=== PATIENT | male | born 1980 | race Caucasian/White ===

== ENCOUNTER 2024-09-27 12:16 | Emergency (ER) | payer SELFPAY ==
[2024-09-27 12:38] VITALS: BP 170/96; PULSE 57; RESP 14; TEMP 36.4; O2SAT 99; BMI 21.4
--- NOTE | 2024-09-27 12:39 | ED.OVERDOSE ---
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 Admits to using 4 bags of heroin today. He overdose and was found given 1 IN narcan. He has no SI/HI. He refuses to stay he is alert and oriented aware that he may overdose again but refuses to stay. He does not want SUDE eval or intervention. 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) Context: Accidental Overdose: wanted to get high Associated symptoms: nausea/vomiting Treatments Prior to Arrival: narcan Related Data Allergies Allergy/AdvReac Type Severity Reaction Status Date / Time No Known Allergies Allergy Verified 09/27/24 12:41 Review of Systems Review of Systems: Constitutional : No Fever, No Chills, No Fatigue ENT/Mouth : No sore throat, No Rhinorrhea Eyes: No Eye Pain, No Swelling, No Redness Cardiovascular : No Chest Pain, No SOB, No Dyspnea on Exertion Respiratory : No Cough, No Sputum Gastrointestinal : No Nausea, No Vomiting, No Diarrhea, No abdominal Pain Genitourinary : No Dysuria, No Urinary Frequency, No Hematuria, Musculoskeletal : No joint pain, No Myalgias, No Joint Swelling Skin : No Skin Lesions, No rash Neuro : No Weakness, No Numbness, No Dizziness, no Headache Psych : No Anxiety/Panic, No Depression, no SI/HI All other systems reviewed and are negative [facility] Past Medical History Attestation statement: The following information was validated with the patient. Source: old records reviewed Medical History (Updated 09/27/24 @ 12:41 by Mayra Tolentino DO) Opiate use Social History Social History (Updated 09/27/24 @ 12:41 by Mayra Tolentino DO) Patient Tobacco Use Status: Tobacco use Unknown Physical Exam Vital Signs: Vital Signs: Last Vital Signs Temp 97.5 F 09/27/24 12:38 Pulse 57 09/27/24 12:38 Resp 14 09/27/24 12:38 BP 170/96 H 09/27/24 12:38 Pulse Ox 99 09/27/24 12:38 O2 Del Method Room Air 09/27/24 12:38 BMI result Body Mass Index 21.4 Appearance: Alert. Oriented X3. No acute distress. Eyes: Pupils equal, round and reactive to light. ENT: Pharynx normal. atraumatic Neck: Normal inspection. Neck supple. CVS: Normal heart rate and rhythm. Pulses normal. Respiratory: No respiratory distress. Breath sounds normal. Abdomen: Soft and nontender. Skin: Skin warm and dry. Normal skin color. Normal skin turgor. Extremities: No lower extremity edema. No calf ttp Neuro: Oriented X 3. No motor deficit. No sensory deficit. CN2-12 intact Medical Decision Making Medical Decision Making MDM Narrative: 43 yo male OUD on methadone wanted to get high and overdose he has no trauma no SI/HI. At this time he refuses to stay. He will be given narcan to go and resources. He is alert and oriented he is able to refuse Differential Diagnosis Differential Diagnoses: The differential diagnosis associated with the presentation includes overdose, opiate use disorder Admission/Observation Consideration of admission/observation: Escalation of care including admission/observation considered refuses to stay wants to leave AMA Independent Historian Clinical information obtained from an independent historian. History obtained from or confirmed by: EMS Prescription Management I considered prescription management with: Other Discharge Plan Discharge Clinical Impression: Overdose Qualifiers: Encounter type: initial encounter Injury intent: accidental or unintentional Qualified Code(s): T50.901A - Poisoning by unspecified drugs, medicaments and biological substances, accidental (unintentional), initial encounter Instructions: Against Medical Advice (ED), Adult Overdose (ED) Additional Instructions: Overdose You were seen in our Emergency Department for an overdose today. You received narcan in order to reverse the effects of overdose. Narcan only lasts about 45 min to 1 hour in the system. You may have been given narcan to take home with you today, please keep it near you if you are going to use again, so others can use it if needed.? The number one risk for fatal overdose is using alone? [facility] is a / hotline where you can be on the phone with someone while you use, and they can call for help if they suspect an overdose: [phone] Things to look out for when you leave include severe vomiting or diarrhea, headaches, muscle cramps, fever, coughing, chest pain, or if you feel so short of breath you cannot walk to the bathroom. Please seek care and return any time for worsening symptoms.? You may have been provided with safer injection?items, please take time to take care of YOU and your health. Use new supplies whenever possible to lessen the chances of infections and other illnesses.? If you need more supplies, please go [facility],? [address] [place] [address] OR you can call or text to coordinate delivery of safer supplies. If you decide you want to stop or cut down on how much you?re using, please call the numbers on the list provided to you or you can come to our outpatient Addiction Treatment office [facility] (M-F 9am-5p) [address] [place] [address], [facility] [address] [place], [place]. [phone]
[2024-09-27] MEDS: Naloxone HCl Nasal TAKE HOME 4 MG SPRAY 8 MG NOSTRILALT (13:09)
[2024-09-27 13:10] VITALS: BP 170/96; PULSE 57; RESP 14; TEMP 36.4; O2SAT 99
--- OUTSIDE RECORDS SUMMARY | 2024-09-27 16:00 | XMS_ITS | Clinical Summary ---
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 Role Phone Unavailable Primary Care Provider Unavailabl e Allergies No known active allergies Medications No known medications Active Problems Problem Noted Date Diagnosed Date Acne 06/24/2022 Smoker 06/24/2022 Chronic low back pain 06/24/2022 Left ankle injury 06/24/2022 Hx of substance abuse 06/24/2022 Overview (06/24/2022): RX opioids, was on suboxone for 3 years, clean now Social History Tobacco Use Types Packs/Day Years Used Date Smoking Tobacco: Never Assessed Sex and Gender Information Value Date Recorded Sex Assigned at Male 06/24/2022 9:45 AM EST Legal Sex Male 8:35 PM EDT Gender Identity Male 06/24/2022 9:45 AM EST Sexual Orientation Don't know 06/24/2022 10 :00 AM EST Plan of Treatment Health Maintenance Due Date Last Done Comments Depression Screening 1981 HIV Screening 1981 Lipid Panel 1981 SDOH Screening 1981 Alcohol/Substance Use Screening 1993 Tobacco Screening 1993 Family Planning (PISQ) 1996 Hepatitis C Screening 11/29/1999 Hepatitis B Vaccines (1 of 3 - 19+ 3-dose series) 2000 Dental Oral Exam 03/10/2010 09/06/2009, 01/2005, 07/31/2004, Additional history exists Dental Prophylaxis 03/10/2010 09/06/2009, 0 02/20/2005, 07/31/2004, Additional history exists Dental X-Ray: Bitewings 09/07/2010 09/07/19 10, 07/31/2004, 01/25/2002 Dental X-Ray: Full Mouth 09/07/2012 09/06/2009 DTaP/Tdap/Td Vaccines (2 - Td or Tdap) 12/20/2019 12/19/2009, 04/03/2005 COVID-19 Vaccine (1 - 2023- season) 2024 Influenza Vaccine (#1) 2024 Zoster Vaccines (1 of 2) 11/29/2031 RSV Patients and Patients Aged 60 years or older (1 - 1-dose 75+ series) 2056 HIB Vaccines Aged Out No longer eligi ble based on patient's age to complete this topic HPV Vaccines Aged Out No longer eligi ble based on patient's age to complete this topic Hepatitis A Vaccines Aged Out No long er eligible based on patient's age to complete this topic IPV Vaccines Aged Out No longer eligi ble based on patient's age to complete this topic Meningococcal Vaccine Aged Out No rene juan carlos eligible based on patient's age to complete this topic Pneumococcal Vaccine: Pediatrics (0 to 5 Years) and At-Risk Patients (6 to 49) Years) Aged Out No longer eligible based on patient's age to complete this topic RSV under 20 months Aged Out No longe r eligible based on patient's age to complete this topic Rotavirus Vaccines Aged Out No longer eligible based on patient's age to complete this topic Procedures Procedure Name Priority Date/Time Associated Diagnosis Comments PROPHYLAXIS - ADULT Routine 09/06/2009 1 2:00 AM EDT INTRAORAL - COMPLETE SERIES OF RADIOGRAPHIC IMAGES Routine 09/06/2009 12:00 AM EDT PERIODIC ORAL EVALUATION - ESTABLISHED PATIENT Routine 09/06/2009 12:00 AM EDT from Last 3 Months or Most Recently Relevant to Health Maintenance Insurance [facility] MEDICAID STAND ADULT
== END 2024-09-27 13:10 | disposition left against medical advice (07) ==
LOC: HO.ED 13:06
PROVIDERS: Emergency Provider Emergency Medicine
DX: T40.1X1A Poisoning by heroin, accidental (unintentional), initial encounter (principal); F11.20 Opioid dependence, uncomplicated; Y92.9 Unspecified place or not applicable
CPT/HCPCS: 99282; 99283